=== PATIENT | male | born 2000 | race Two or more races ===

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

== ENCOUNTER 2022-11-28 05:14 | Emergency (ER) | payer OTHER, SELFPAY ==
--- NOTE | ~2022-11-28 | XR_ITS ---
EXAMINATION: XR CHEST CLINICAL INFORMATION: Dyspnea, cough COMPARISON: 12/08/2008 TECHNIQUE: Frontal view of the chest was obtained. FINDINGS: The lungs are clear with no focal consolidation. No evidence of pneumothorax, pulmonary edema, or pleural effusions. The cardiomediastinal silhouette is unremarkable. No acute osseous findings. XR/XR chest 1V IMPRESSION: No acute cardiopulmonary findings.
[2022-11-28 05:16] VITALS: BP 152/95; PULSE 116; RESP 18; TEMP 36.7; O2SAT 97; BMI 35.9
[2022-11-28 05:29] VITALS: BP 114/93; PULSE 114; RESP 30; TEMP 37.1; O2SAT 97
--- NOTE | 2022-11-28 05:29 | ECG_ITS ---
Test Reason : DYSPENA Blood Pressure : / mmHG Vent. Rate : 107 BPM Atrial Rate : 107 BPM P-R Int : 158 ms QRS Dur : 084 ms QT Int : 336 ms P-R-T Axes : 030 032 -01 degrees QTc Int : 448 ms Sinus tachycardia Nonspecific T wave abnormality Abnormal ECG No previous ECGs available Referred By: Stephanie Riley Electronically Signed By:DEBORAH WHITE MD
--- NOTE | 2022-11-28 05:35 | ED_ITS ---
HPI - SOB/Dyspnea General Chief Complaint: Dyspnea Stated Complaint: trouble breathing Time Seen by Provider: 11/28/22 05:30 Source: patient Mode of arrival: ambulatory History of Present Illness HPI Narrative: 22-year-old male who presents without significant past medical history states that he woke up this morning with some difficulty breathing, drink some water, but then has progressively worsened throughout the day. He does report sick contacts in states he has had congestion, cough, sore throat began 2-3 days ago. Related Data Previous Rx's Medication Instructions Recorded dicyclomine 10 mg capsule 10 mg PO BID Abdominal cramps 11/12/20 #14 caps prednisone 50 mg tablet 50 mg PO DAILY 4 days #4 tabs 11/28/22 Allergies Allergy/AdvReac Type Severity Reaction Status Date / Time No Known Allergies Allergy Verified 11/28/22 05:21 Review of Systems Review of Systems: Pertinent positives and negatives as stated in HPI [facility] Past Medical History Source: nursing notes reviewed Medical History No known health problems Social History Social History Alcohol intake: never Smoked in Last 30 Days: No Use of substances other than those prescribed or required for medical reasons: No Advance Directives: No Advance Directives Information Provided: Yes Physical Exam Vital Signs: Vital Signs: Last Vital Signs Temp 98.7 F 11/28/22 05:29 Pulse 112 H 11/28/22 06:47 Resp 18 11/28/22 06:47 BP 114/93 H 11/28/22 05:29 Pulse Ox 97 11/28/22 05:29 O2 Del Method Room Air 11/28/22 05:29 BMI result Body Mass Index 35.9 VITAL SIGNS: Reviewed. GENERAL: Well developed, well nourished, in no acute distress. HEAD: Normocephalic/atraumatic EYES: PERRLA, EOMI EARS: Ext canals without abnormality, TMs non-bulging and non-erythematous NOSE: Nares patent bilateral OROPHARYNX: no oral lesions noted, posterior pharynx clear and non-erythematous without noted tonsillar enlargement/erythema/exudates NECK: Supple, no adenopathy LUNGS: Normal breath sounds. No adventitious sounds or accessory muscle use. SpO2<97> CARDIOVASCULAR: Regular rate and rhythm without noted murmurs ABDOMEN: Soft, non-tender, non-distended with bowel sounds. MUSCULOSKELETAL: No tenderness, deformities, or effusions noted on gross inspection. EXTREMITIES: No cyanosis, clubbing or edema. SKIN: Inspection of the skin reveals no rashes but diaphoretic NEUROLOGIC: Alert and oriented x 4. Strength and sensation to light touch were grossly intact x 4. Medications Administered Discontinued Medications Generic Name Dose Route Start Last Admin Trade Name Rafa PRN Reason Stop Dose Admin Acetaminophen 975 mg 11/28/22 05:36 11/28/22 05:42 Acetaminophen 325 Mg Tablet PO 11/28/22 05:37 975 mg ONCE ONE Administration Albuterol Sulfate 5 mg 11/28/22 06:26 11/28/22 06:47 Albuterol Sulfate (0.083%) 2.5 Mg/3 Ml Vial.Neb INHALE 11/28/22 06:27 5 mg ONCE ONE Administration Ibuprofen 400 mg 11/28/22 05:36 11/28/22 05:42 Ibuprofen 400 Mg Tablet PO 11/28/22 05:37 400 mg ONCE ONE Administration Medical Decision Making Medical Decision Making [facility] Narrative: 22-year-old male with history and clinical presentation consistent with shortness of breath, diaphoresis and tachypnea. I reviewed all investigations, initially thought patient may have a viral syndrome, no evidence to suggest strep pharyngitis and reportedly no history of asthma. Hematologic indices are grossly within normal limits, no le ukocytosis/left shift or evidence of anemia or thrombocytopenia. Of note, there is a predominance of eosinophils consistent with suspected asthma or reactive airway etiology and so proceeded to give patient 5 mg albuterol treatment. Viral testing is negative and chest x-ray negative for pneumonia. Signed out to Dr. Hodges to follow-up chemistries, but suspect that patient will be able to be discharged with a Ventolin inhaler. Differential Diagnosis Differential Diagnoses: The differential diagnosis associated with the presentation includes Please see the discussion above Admission/Observation Consideration of admission/observation: Escalation of care including admission/observation considered Lab Data [facility] Lab Attestation statement: I reviewed the patient's lab results. Please see the discussion above 11/28/22 06:42 11/28/22 06:42 Labs: Lab Results 11/28/22 11/28/22 Range/Units 05:43 06:42 WBC 7.4 (4.8-10.8) X10*3/uL RBC 5.33 (4.60-5.80) X10*6/uL Hgb 16.8 (14.0-18.0) g/dl Hct 48.4 (42.0-52.0) % MCV 90.8 (80.0-98.0) fL MCH 31.5 (27.0-33.0) pg MCHC 34.7 (31.0-36.0) g/dl RDW 12.6 (11.0-16.0) % Plt Count 166 (160-400) X10*3/uL MPV 12.1 (9.4-12.4) fL Immature Gran % (Auto) 0.3 (0.0-0.4) % Neut % (Auto) 48.4 (45-73) % Lymph % (Auto) 27.0 (20-40) % [place] % (Auto) 18.6 H (2-11) % Eos % (Auto) 5.2 H (0-4) % Baso % (Auto) 0.5 (0-2) % Lymph # (Auto) 2.0 (1.2-4.9) X10*3/uL [place] # (Auto) 1.4 H (0.1-1.2) X10*3/uL Eos # (Auto) 0.4 (0.0-0.4) X10*3/uL Baso # (Auto) 0.0 (0.0-0.2) X10*3/uL Abs Immat Gran (auto) 0.02 (0.00-0.03) X10*3/uL Absolute Neuts (auto) 3.6 (2.0-8.3) x10*3/uL Absolute Nucleated RBC 0.000 (0.0-0.012) X10*3/uL Nucleated RBC % (auto) 0.0 (0.0-0.2) /100WBC Influenza Type A (PCR) NEGATIVE (Negative) Influenza Type B (PCR) NEGATIVE (Negative) RSV RNA Qual (PCR) NEGATIVE (Negative) SARS-CoV-2 RNA (RT-PCR) NEGATIVE (Negative) Independent Interpretation I performed an independent interpretation of an: EKG Interpretation: Sinus tachycardia, HR-107, no STEMI, nonspecific T-wave abnormalities, [place]/QRS/QTC is within normal limits. Radiology Impression Radiologist Impression: No pneumonia, otherwise my interpretation is in agreement with radiology's impression. Discharge Plan Discharge Clinical Impression: Asthma with exacerbation Patient Disposition: Still a Patient Instructions: Asthma (ED) Additional Instructions: 1. Use the albuterol inhaler, 2 puffs, every 4-6 hours as needed for shortness of breath. 2. Complete the short course of steroids. I highly recommend that you consider starting daily Flonase and Claritin for better allergen control. 3. Follow-up with your primary care provider. Return to the ER for any worsening symptoms. Prescriptions: New prednisone 50 mg tablet 50 mg PO DAILY 4 Days Qty: 4 0RF No Action dicyclomine 10 mg capsule 10 mg PO BID Qty: 14 0RF
[2022-11-28] MEDS: Acetaminophen 325 MG TABLET 975 MG PO (05:42)
[2022-11-28] MEDS: Ibuprofen 400 MG TABLET PO (05:42)
[2022-11-28 06:23] LABS: Influenza A PCR NEGATIVE (Negative); Influenza B PCR NEGATIVE (Negative); Resp Syncy Virus RNA Qual PCR NEGATIVE (Negative); SARS COV2 PCR INHOUSE NEGATIVE (Negative)
[2022-11-28 06:47] VITALS: PULSE 112; RESP 18; O2SAT 97
[2022-11-28] MEDS: Albuterol Sulfate (0.083%) 2.5 MG/3 ML VIAL.NEB 5 MG INHALE (06:47)
[2022-11-28 06:50] LABS: MANUAL DIFF FLAG NO
[2022-11-28 06:51] LABS: Basophils Percent Auto 0.5 % (0-2); Eosinophils Absolute Auto 0.4 X10*3/uL (0.0-0.4); Eosinophils Percent Auto 5.2 % (0-4); Hematocrit 48.4 % (42.0-52.0); Hemoglobin 16.8 g/dl (14.0-18.0); Imm Gran Abs Auto 0.02 X10*3/uL (0.00-0.03); Imm Gran Pct Auto 0.3 % (0.0-0.4); Mean Corpuscular HGB Conc 34.7 g/dl (31.0-36.0); Mean Corpuscular Hemoglobin 31.5 pg (27.0-33.0); Mean Corpuscular Volume 90.8 fL (80.0-98.0); Mean Platelet Volume 12.1 fL (9.4-12.4); Monocytes Absolute Auto 1.4 X10*3/uL (0.1-1.2); Monocytes Percent Auto 18.6 % (2-11); Neutrophils Absolute Auto 3.6 x10*3/uL (2.0-8.3); Neutrophils Percent Auto 48.4 % (45-73); Platelet Count 166 X10*3/uL (160-400); Red Blood Count 5.33 X10*6/uL (4.60-5.80); Red Cell Distribution Width 12.6 % (11.0-16.0); White Blood Count 7.4 X10*3/uL (4.8-10.8)
[2022-11-28 07:12] VITALS: BP 151/86; PULSE 115; RESP 16; TEMP 36.9; O2SAT 96
[2022-11-28] MEDS: predniSONE 10 MG TABLET 50 MG PO (07:21)
[2022-11-28 07:23] LABS: Alanine Aminotransferase 29 U/L (0-40); Albumin Level 4.3 g/dL (3.5-5.0); Alkaline Phosphatase 91 U/L (39-117); Anion Gap 14 (12-20); Aspartate Amino Transferase 25 U/L (5-37); Bilirubin Total 1.4 mg/dL (0.0-1.0); Blood Urea Nitrogen 19 mg/dL (9-16); Carbon Dioxide 24 mmol/L (22-29); Chloride 106 mmol/L (96-108); Estimated Glomerular Filt Rate > 60; Glucose Random 102 mg/dL (60-115); Potassium 3.9 mmol/L (3.3-5.1); Sodium 140 mmol/L (135-145); Total Protein 7.3 g/dL (6.5-8.0)
[2022-11-28] MEDS: Albuterol Sulfate 90 MCG 8 GM INHALER 2 PUFF INHALE (07:23)
--- NOTE | 2022-11-28 07:25 | PC.NURSE ---
pt a&ox3, respiration equal and unlabored. lung sounds clear bilaterally. skin moist and warm to touch. pt sinus tachy on tele. pt reporting itching and pain in throat,throat appears slightly red and swollen.
[2022-11-28 07:35] VITALS: PULSE 116; RESP 18; O2SAT 94
[2022-11-28 07:49] LABS: IDNOW Serial# 08D9AD1C; Strep A Nucleic Acid Negative (Negative)
== END 2022-11-28 08:56 | disposition home or self-care (01) ==
PROVIDERS: Student in an Organized Health Care Education/Training Program; Emergency Provider Emergency Medicine Emergency Medical Services
DX: R06.02 Shortness of breath (principal); R00.0 Tachycardia, unspecified; R05.9 Cough, unspecified; Z20.822 Contact with and (suspected) exposure to COVID-19; Z20.828 Contact with and (suspected) exposure to other viral communicable diseases; Z79.899 Other long term (current) drug therapy
CPT/HCPCS: 0241U; 36415; 71045; 80053; 85025; 87651; 93005; 94640; 99284; 99285

== ENCOUNTER → 2022-11-28 05:29 | Outpatient (BNV) | payer OTHER, SELFPAY | PROVIDERS: Emergency Provider Emergency Medicine Emergency Medical Services; Visit Provider Internal Medicine Cardiovascular Disease | DX: R00.0 Tachycardia, unspecified (principal) | CPT/HCPCS: 93010 ==

== ENCOUNTER 2023-08-07 13:29 | Emergency (ER) | payer OTHER, SELFPAY ==
[2023-08-07 13:57] VITALS: BP 143/90; PULSE 100; RESP 16; TEMP 37.2; O2SAT 99; BMI 35.2
--- NOTE | 2023-08-07 14:02 | ED.GENADULT ---
HPI - General Adult General Chief complaint: Skin/Abscess/Foreign Body Stated complaint: cyst under l arm Time Seen by Provider: 08/07/23 15:43 Source: patient Mode of arrival: ambulatory Limitations: no limitations History of Present Illness HPI narrative: 22 yo Male presenting to the ER for evaluation of a painful cyst under his left arm for the last 4 days. He states he has been getting larger and more painful over time. He states he just started shaving his under arms recently. He states there is pain with any movement of the left lower extremity. Denies any fever or chills. He has not diabetic. No drainage from the area. complaint: Painful cyst under left underarm Onset (ago): day(s) Location: left and upper extremity Radiation: non-radiation Severity: severe Severity scale (1-10): 10 Quality: stabbing and aching Pain Consistency: constant Relieving factors: immobilization Exacerbating factors: movement Associated symptoms: denies other symptoms Treatments prior to arrival: none Related Data Previous Rx's Medication Instructions Recorded dicyclomine 10 mg capsule 10 mg PO BID Abdominal cramps 11/12/20 #14 caps prednisone 50 mg tablet 50 mg PO DAILY 4 days #4 tabs 11/28/22 amoxicillin 875 mg-potassium 1 tab PO BID #14 tabs 08/07/23 clavulanate 125 mg tablet ibuprofen 600 mg tablet 600 mg PO Q8H PRN pain #14 tabs 08/07/23 Allergies Allergy/AdvReac Type Severity Reaction Status Date / Time No Known Allergies Allergy Verified 11/28/22 05:21 Review of Systems Review of Systems: Yes all other systems are reviewed and are negative PMFSH Past Medical History Medical History No known health problems Social History Social History Alcohol intake: never Advance Directives: No Advance Directives Information Provided: No Physical Exam ED Vital Signs: Vital Signs - 24 hr 08/07/23 13:57 Temperature 99 F Pulse Rate 100 Respiratory Rate 16 Blood Pressure 143/90 H Pulse Oximetry 99 Oxygen Delivery Method Room Air BMI result Body Mass Index 35.2 Appearance: Alert. Oriented X3. No acute distress. HEENT: normal inspection CVS: Normal heart rate and rhythm. Pulses normal. Respiratory: No respiratory distress. Skin: Skin warm and dry. Normal skin color. Normal skin turgor. No rashes. Extremities: left axillary area with moderate sized tender area approx 3.5cm with central fluctuance Neuro: Oriented X 3. No motor deficit. No sensory deficit. Course Course Course Narrative: This is an RME: Additional HPI, ROS, PE not included below will be deferred to primary provider.22 yo m presents w/ cyst under left armpit X 4 days worsening. Never has happened to him before. No fevers or chills Medications Administered Discontinued Medications Generic Name Dose Route Start Last Admin Trade Name Freq PRN Reason Stop Dose Admin Lidocaine HCl 5 ml 08/07/23 14:02 08/07/23 15:59 Lidocaine Hcl 2 % Mpf 5 Ml Vial SUBCUT 08/07/23 14:03 Not Given ONCE ONE Procedures Abscess I/D Site: upper extremity Side (if applicable): left Local Anesthetic: lidocaine 1% Amount of anesthesia used (mL): 1 Technique: incised with blade Sent for culture/gram staining?: No Irrigation: Yes Packing used?: none Complications: pain and bleeding Medical Decision Making Medical Decision Making MDM Narrative: 22-year-old male presents to the ER for evaluation of painful left axillary mass c/w abscess x4 days. No hx DM. area was incised and drained in the ER with moderate amount of purulent and bloody material. Size significantly decreased. Patient tolerated well. Had some mild cellulitic changes surrounding so will give short course of antibiotics as well. Patient is stable for discharge home. We discussed wound care and return precautions. Patient is in agreement and all questions were answered Differential Diagnosis Differential Diagnoses: The differential diagnosis associated with the presentation includes abscess, cyst, hidradenitis suppurativa, infected follicle, carbuncle External Record Review External record reviewed: Outpatient record and Prior outpatient labs Prescription Management I considered prescription management with: Pain Medication and Antibiotic Chronic Conditions Patient?s care impacted by: Other (obesity) Critical Care Time Critical Care Time Critical Care Time: No Discharge Plan Discharge Clinical Impression: Abscess of skin or subcutaneous tissue Qualifiers: Site of cutaneous abscess: extremity Site of cutaneous abscess of extremity: axilla Laterality: left Qualified Code(s): L02.412 - Cutaneous abscess of left axilla Patient Disposition: Home, Self-Care Instructions: Abscess Incision and Drainage (DC) Additional Instructions: Use warm compresses to the area several times per day. Do not shave your underarms. Take the prescribed antibiotic as directed. Take Motrin and Tylenol as needed for pain. If you develop new or worsening symptoms call 911 or come back to the ER for further evaluation. Prescriptions: New amoxicillin-pot clavulanate 875-125 mg tablet 1 tab PO BID Qty: 14 0RF ibuprofen 600 mg tablet 600 mg PO Q8H PRN (Reason: pain) Qty: 14 0RF No Action dicyclomine 10 mg capsule 10 mg PO BID Qty: 14 0RF prednisone 50 mg tablet 50 mg PO DAILY 4 Days Qty: 4 0RF Stand Alone Forms: Work/School Release
--- NOTE | 2023-08-07 15:58 | PC.NURSE ---
pt a&ox3, provider at bedside, pt c/o under arm pain
[2023-08-07 16:18] VITALS: BP 148/86; PULSE 98; RESP 16; TEMP 37.1; O2SAT 98
== END 2023-08-07 16:19 | disposition home or self-care (01) ==
PROVIDERS: Emergency Provider Emergency Medicine
DX: L02.412 Cutaneous abscess of left axilla (principal)
CPT/HCPCS: 10060; 99282; 99283; 99284

== ENCOUNTER 2024-03-02 15:43 | Emergency (ER) | payer OTHER, SELFPAY ==
[2024-03-02 16:21] VITALS: BP 141/90; PULSE 102; RESP 18; TEMP 36.4; O2SAT 98; BMI 17.3
--- NOTE | 2024-03-02 16:24 | ED.GENADULT ---
HPI - General Adult General Chief complaint: Skin/Abscess/Foreign Body Stated complaint: Ingrown toe nail Time Seen by Provider: 03/02/24 16:24 Source: patient and RN notes reviewed Mode of arrival: ambulatory Limitations: no limitations History of Present Illness ED Provider: Samaria Tristan PA-C HPI narrative: This is a 23-year-old male, with no known medical problems, who presents emergency department with complaints of right great toenail pain for the last few weeks. Patient states that he believes he has an ingrown toenail and started trying to remove this area. He states that the area has been increasingly painful and has noticed some drainage. He denies any fevers or chills. No history of diabetes, he is up-to-date with all his immunizations. No history of similar symptoms in the past. 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 No other complaints or concerns at this time. MD complaint: Right great toe pain Onset (ago): week(s) Quality: aching Pain Consistency: constant Relieving factors: none Associated symptoms: denies other symptoms Treatments prior to arrival: none Related Data Previous Rx's ?Medication ?Instructions ?Recorded dicyclomine 10 mg capsule 10 mg PO BID Abdominal cramps 11/12/20 #14 caps prednisone 50 mg tablet 50 mg PO DAILY 4 days #4 tabs 11/28/22 amoxicillin 875 mg-potassium 1 tab PO BID #14 tabs 08/07/23 clavulanate 125 mg tablet ibuprofen 600 mg tablet 600 mg PO Q8H PRN pain #14 tabs 08/07/23 acetaminophen 500 mg tablet 1,000 mg (2 x 500 mg) PO Q8H PRN 03/02/24 (Tylenol Extra Strength) pain #30 tabs cephalexin 500 mg capsule 500 mg PO QID 5 days #20 caps 03/02/24 ibuprofen 600 mg tablet 600 mg PO Q6H PRN pain #30 tabs 03/02/24 Allergies Allergy/AdvReac Type Severity Reaction Status Date / Time No Known Allergies Allergy Verified 03/02/24 16:22 Review of Systems Review of Systems: Yes all other systems are reviewed and are negative Constitutional: Constitutional: Reports as per [facility] Past Medical History Attestation statement: The following information was validated with the patient. Medical History No known health problems Social History Social History Alcohol intake: never Advance Directives: No Advance Directives Information Provided: Yes Physical Exam ED Vital Signs: Vital Signs - 24 hr 03/02/24 16:21 Temperature 97.5 F Pulse Rate 102 H Respiratory Rate 18 Blood Pressure 141/90 H Pulse Oximetry 98 Oxygen Delivery Method Room Air BMI result Body Mass Index 17.3 Const General: cooperative, comfortable and no acute distress Orientation/consciousness: patient oriented x3 Limitations: no limitations HENMT Head: Yes normal to inspection, Yes normocephalic and Yes atraumatic Ears: hearing grossly normal bilaterally General nose exam: Normal external nose present Face and sinus: Yes normal facial exam Mouth: Normal oral and palatal mucosa present, oropharynx normal and moist mucous membranes Throat: Yes posterior oropharynx normal Eyes General: appearance normal, both eyes and all related structures Eyelids: Yes eyelids normal Conjunctivae: conjunctivae normal Sclerae: sclerae normal Pupils: Equal, round and reactive pupils present EOM: EOMs intact bilaterally Neck Neck: Yes normal visual inspection, Yes full ROM and Yes no lymphadenopathy Lymphatic: no lymphadenopathy noted Chest Chest palpation & inspection: normal inspection of the chest Resp Effort & Inspection: normal respiratory effort and able to speak in complete sentences Auscultation: clear to auscultation bilaterally, no crackles, no rales, no rhonchi and no wheezes Cardio Rate: regular rate Rhythm: regular rhythm Heart sounds: S1 normal heart sound present and S2 normal heart sound present GI Inspection: Yes normal to inspection Skin General skin exam: no rashes or lesions noted Trauma: no lacerations or abrasions Wounds: no wounds Neuro General: patient oriented x3 and moves all extremities Cranial nerves: Yes Equal, round and reactive pupils present Extrem Other: Right great toe, with tenderness and erythema and induration noted to the lateral nail edge, with some drainage noted. Full ROM of the digit without difficulty. No evidence of abscess or paronychia. General: Yes normal to inspection Right upper extremity: normal to inspection Left upper extremity: normal to inspection Right lower extremity: normal to inspection Left lower extremity: normal to inspection Medical Decision Making Medical Decision Making MDM Narrative: This is a 23-year-old male who presents emergency department with complaints of right great toe redness and pain for the last several weeks. Area is erythematous, warm, and tender to palpation. On arrival, patient slightly hypertensive at 141/90, pulse 102, likely secondary to pain. He has no fevers or chills. Patient's symptoms consistent with ingrown toenail, will treat with Keflex. He has no other symptoms other than pain. Tachycardia secondary to pain, he is afebrile. Will treat with Keflex, given strict return precautions as well as podiatry referral. Patient stable for discharge. Differential Diagnosis Differential Diagnoses: The differential diagnosis associated with the presentation includes Cellulitis, ingrown toenail, paronychia, abscess Discharge Plan Discharge Clinical Impression: Ingrowing toenail of right foot Patient Disposition: Home, Self-Care Instructions: Ingrown Nail (ED), Warm Compress or Soak (ED) Additional Instructions: You were seen in the emergency department due to an infected toenail. Please do not pick at this area. You need to be on antibiotics as this is now infected. Take full course of antibiotics as directed. Finish the entire course even if your symptoms improve. Please perform warm soaks, 6 times per day. May use hot soapy water to do this. Soap this for 15 minutes at a time, and repeat 6 times per day. You need to follow-up with the salesperson pian[employer] organs, call today to make an appointment. If any new or worsening symptoms occur including but not limited to increased pain, redness, fevers or chills. Prescriptions: New cephalexin 500 mg capsule 500 mg PO QID 5 Days Qty: 20 0RF ibuprofen 600 mg tablet 600 mg PO Q6H PRN (Reason: pain) Qty: 30 0RF acetaminophen [Tylenol Extra Strength] 500 mg tablet 1,000 mg PO Q8H PRN (Reason: pain) Qty: 30 0RF No Action dicyclomine 10 mg capsule 10 mg PO BID Qty: 14 0RF prednisone 50 mg tablet 50 mg PO DAILY 4 Days Qty: 4 0RF amoxicillin-pot clavulanate 875-125 mg tablet 1 tab PO BID Qty: 14 0RF ibuprofen 600 mg tablet 600 mg PO Q8H PRN (Reason: pain) Qty: 14 0RF Referrals: Heidi Huber DPM [Physician] - Stand Alone Forms: Work/School Release Print Language: Hungarian
[2024-03-02 17:40] VITALS: BP 141/90; PULSE 102; RESP 18; TEMP 36.4; O2SAT 98
== END 2024-03-02 17:42 | disposition home or self-care (01) ==
PROVIDERS: Emergency Provider Emergency Medicine; PCP Physician Assistant Medical
DX: L60.0 Ingrowing nail (principal); R00.0 Tachycardia, unspecified; M79.674 Pain in right toe(s)
CPT/HCPCS: 99282; 99283

== ENCOUNTER 2024-03-25 13:42 | Outpatient (AMB) | payer OTHER, SELFPAY ==
--- NOTE | 2024-03-25 13:45 | MHC.PC.OV ---
Vital Signs 03/25/24 13:55 Height 5 ft 8 in Weight 249 lb BMI 37.9 BP 128/80 Blood Pressure Location Lt brachial Position Sitting Respiration 13 Pulse 93 Pulse Source Pulse Oximeter Pulse Oximetry (%) 98 Oxygen Delivery Method Room Air Intake Visit Reasons: [employer]PER[employer]OR- PE request Intake Note: ew patient to establish care Corporate Ethics Officer Required: No Allergies No Known Allergies Allergy (Verified 03/25/24 13:48) Tobacco use date assessed: 03/25/24 Dental Screening Dental Screen Date: 03/25/24 Did you have a dental visit in the last 12 months?: No Did you have a dental problem in the last 6 months where you did not have access to dental care?: No Was dental information given to patient?: Patient has dentist HPI HPI Comments History of Present Illness Details This is a 23-year-old male presenting for a physical exam. He is a new patient. Patient was seen at the emergency department on 03/02/2024 for an infection of his right ingrown great toenail. Patient was treated with cephalexin. Symptoms improved, but the ingrown nail is still painful. He also has an ingrown toenail on the left foot. He will schedule a dental and eye exams. He works as a cook at [employer]. Drinks alcohol socially. Nonsmoker. No drug use. Declines screenings for STIs. Influenza and Tdap vaccines administered today. ROS: Constitutional: No unexplained weight loss, fever, chills, fatigue or night sweats. Eyes: No vision changes, blurry vision, double vision, eye pain, eye redness, eye discharge. ENT: No hearing loss, sneezing, congestion, runny nose or sore throat. Respiratory: No shortness of breath, cough or sputum production. Cardiovascular: No chest pain, chest pressure or chest discomfort. No palpitations or pedal edema. Gastrointestinal: No anorexia, nausea, vomiting or diarrhea. No abdominal pain or blood in stool. Genitourinary: No dysuria, hematuria, urinary frequency. No testicular masses, pain, swelling or hernia. Neurologic: No headache, dizziness, syncope, unilateral weakness, ataxia, numbness or tingling in the extremities. Musculoskeletal: No muscle pain, back pain, joint pain or swelling. Hematologic/Lymphatics: No bleeding or bruising. No painful lymph nodes. Skin: No rash. Endocrine: No cold or heat intolerance. No polyuria or polydipsia. Psychiatric: No depression or anxiety. No SI/HI. Physical exam: Constitutional: Alert, in no distress. Head: Normocephalic. Eyes: Pupils are equal, round and reactive to light. Extraocular muscles intact. Ear, Nose and Throat: Canals clear. TMs normal. Normal nasal mucosa. No nasal discharge. No oral lesions. Neck: Supple, Full range of motion. No lymphadenopathy. No palpable thyroid masses. Respiratory: Clear to auscultation. Cardiovascular: S1 S2 regular. No murmurs. Gastrointestinal: Abdomen soft, non-tender, non-distended. Normal bowel sounds. No palpable masses. Genitourinary: Patient deferred. Neurologic: No focal neurological deficits. Symmetric patellar reflexes. Moves all extremities spontaneously. Sensation intact bilaterally. Skin: No rashes. Musculoskeletal: No gross deformities. Normal range of motion. Extremities: Warm and well perfused. Toenails: Bilateral ingrown great toenails. There is dried blood on the edges of the right great toenail and mild swelling. No weeping or discharge. No erythema. Psychiatric: Normal mood and affect [facility] Medical History (Updated 03/25/24 @ 14:27 by ELDA Yin) Ingrown toenail of both feet Screening for cardiovascular condition Routine physical examination Asthma Surgical History (Updated 03/25/24 @ 13:54 by Abraham Pham MA) No pertinent past surgical history Family History (Updated 03/25/24 @ 13:54 by Abraham Pham MA) Paternal Grandfather Diabetes Maternal Grandfather Diabetes Colon cancer Father Hypertension Maternal Grandmother Cardiovascular disease Asthma Sister Thyroid disease Asthma Brother Asthma Mother Asthma Social History (Updated 03/25/24 @ 13:50 by Abraham Pham MA) Household Members: Family Both parents involved: Yes Caregiver staying overnight: No Housing: House Are you a primary day care aide to a significant other at home: No 75 years or older and lives alone: No Alcohol intake: never Patient Tobacco Use Status: Never used Tobacco e-Cigarette/Vaping Use: Never Used Second Hand Smoke Exposure: No Use of substances other than those prescribed or required for medical reasons: No service: No Current occupational status: employed Current occupation: cook Cognitive needs: No Hearing needs: No Vision needs: No Questionnaire PHQ-9 Over the last 2 weeks, how often have you been bothered by any of the following problems? 1. Little interest or pleasure in doing things: not at all 2. Feeling down, depressed, or hopeless: not at all 3. Trouble falling or staying asleep, or sleeping too much: not at all 4. Feeling tired or having little energy: not at all 5. Poor appetite or overeating: not at all 6. Feeling bad about yourself - or that you are a failure or have let yourself or your family down: not at all 7. Trouble concentrating on things, such as reading the newspaper or watching television: not at all 8. Moving or speaking so slowly that other people could have noticed. Or the opposite - being so fidgety or restless that you have been moving around a lot more than usual: not at all 9. Thoughts that you would be better off or of hurting yourself in some way: not at all Total score: 0 08990 - PHQ-9 Billing: Yes Source: Developed by Drs. Christopher Fragoso, Marilou Marie, Joseluis Vasquez and colleagues, with an educational efrain from [employer]. Thrive Questionnaire Date Thrive assessed: 03/25/24 I am a: Patient What is your living situation today?: I have a steady place to live Within the past 12 months, did the food you bought not last and you didn't have the money to get more?: Never true Within the past 12 months, did you worry whether your food would run out before you got money to buy more?: Never true Do you have trouble paying for medicines?: No Do you have trouble getting transportation to medical appointments?: No Do you have trouble paying your heating and electricity bill?: No Do you have trouble taking care of your child, family member or friend?: No Do you have trouble with day-to-day activities such as bathing, preparing meals, shopping, managing finances, etc.?: No Are you currently unemployed and looking for a job?: No Are you interested in more education?: No Please select the resources that you would like help with: None Currently or been in a relationship where the following occur: No concerns reported THRIVE Score: 0 AUDIT C Alcohol Use Questionnaire (AUDIT-C) 1. How often do you have a drink containing alcohol?: Never Total Score: 0 GEOFF-7 AMB Questionnaire GEOFF-7 Date GEOFF - 7 assessed: 03/25/24 Feeling nervous, anxious, or on edge: 0 = Not at all Not being able to stop or control worryin = Not at all Worrying too much about different things: 0 = Not at all Trouble relaxin = Not at all Being so restless that it is hard to sit still: 0 = Not at all Becoming easily annoyed or irritable: 0 = Not at all Feeling afraid as if something awful might happen: 0 = Not at all Total GEOFF-7 score (0-4 normal; 5-9 mild; 10-14 moderate; 15-21 severe): 0 Source: Developed by Drs. Christopher Fragoso, Marilou Marie, Joseluis Vasquez and colleagues, with an educational efrain from [employer]. GEOFF-7 Assessment Billing GEOFF-7 Assessment Tool: GEOFF-7 Assessment 14438 Physical exam (Primary Care) Vital Signs: Last Vital Signs Pulse 93 03/25/24 13:55 Resp 13 03/25/24 13:55 BP 128/80 03/25/24 13:55 Pulse Ox 98 03/25/24 13:55 Oxygen Delivery Method Room Air 03/25/24 13:55 BMI result Body Mass Index 37.9 Tobacco/Smoking Status: Tobacco use Status Tobacco use date assessed 03/25/24 03/25/24 13:57 Patient Tobacco Use Status Never used Tobacco 03/25/24 13:57 e-Cigarette/Vaping Use Never Used 03/25/24 13:57 PHQ-9: PHQ-9 Score PHQ-9: Total score 0 03/25/24 13:47 Thrive Assessment: Date of Thrive Assessment Date Thrive assessed 03/25/24 03/25/24 13:47 Currently or been in a relationship where the following occur: No concerns reported Coding Level of Care Code New Pt Prev Care 18-39yr(79842 Diagnoses Routine physical examination Z00.00 Ingrown toenail of both feet L60.0 Additional Codes GEOFF-7 Assessment Billing - GEOFF-7 Assessment Tool: GEOFF-7 Assessment 50897 ([id number]) PHQ-9 - 10849 - PHQ-9 Billing: Yes ([id number]) Assessment & Plan Assessment & Plan (1) Routine physical examination: Code(s): Z00.00 - Encounter for general adult medical examination without abnormal findings Category: Medical Plan: Patient is seen today for a routine physical. As part of this visit we reviewed the following issues, which are considered and essential part of preventative health in this age group: - Testicular cancer screening, which includes self exam teaching - Blood pressure screening - Cholesterol screening - Nutritional and exercise counseling - Counseling of injury prevention including fire prevention, smoke alarms and seat belt usage - Screening for depression - Prevention of and/or testing for infectious diseases- declined. - Education about skin cancer - Recommendations about immunizations - Recommendation of an eye exam - Screening for substance abuse - Genetic cancer risk screening (2) Ingrown toenail of both feet: Code(s): L60.0 - Ingrowing nail Category: Medical Plan: Continue warm soaks and application of topical bacitracin ointment. Referred to Dr. Auguste. Plan Follow up in 1 year for annual physical exam and sooner as needed. Orders: Orders Complete Blood Count no Diff Today Z00.00 - Encounter for general adult medical examination without abnormal findings, Z13.6 - Encounter for screening for cardiovascular disorders TSH reflex Free T4 Today Z00.00 - Encounter for general adult medical examination without abnormal findings, Z13.6 - Encounter for screening for cardiovascular disorders Comprehensive Met. Panel Today Z00.00 - Encounter for general adult medical examination without abnormal findings, Z13.6 - Encounter for screening for cardiovascular disorders TDaP Immunization Today Z23 - Encounter for immunization Influenza [id number] Immunization Today Z23 - Encounter for immunization Lipid Panel Today Z00.00 - Encounter for general adult medical examination without abnormal findings, Z13.6 - Encounter for screening for cardiovascular disorders Referrals Podiatry Referral L60.0 - Ingrowing nail Medications: New Boostrix Tdap (diphth,pertus(acell),tetanus) 0.5 mL IM ONCE 0.5 mL 0RF NS Z23 - Encounter for immunization Fluarix Triv [id number] (PF) (flu vacc [id number] 6mos up(PF)) 0.5 mL IM ONCE 0.5 mL 0RF NS Z23 - Encounter for immunization
[2024-03-25 13:55] VITALS: BP 128/80; PULSE 93; RESP 13; O2SAT 98; BMI 37.9
== END 2024-03-25 14:42 | disposition home or self-care (01) ==
LOC: HO.HMCFM 13:43
PROVIDERS: PCP Physician Assistant Medical; Visit Provider Physician Assistant Medical
DX: Z00.00 Encounter for general adult medical examination without abnormal findings (principal); L60.0 Ingrowing nail; Z23 Encounter for immunization

== ENCOUNTER → 2024-03-25 13:42 | Outpatient (BNVA) | payer OTHER, SELFPAY | PROVIDERS: PCP Physician Assistant Medical; Visit Provider Physician Assistant Medical | DX: Z00.00 Encounter for general adult medical examination without abnormal findings (principal); L60.0 Ingrowing nail; Z23 Encounter for immunization | CPT/HCPCS: 90471; 90472; 90656; 90715; 96127; 99385 ==

== ENCOUNTER 2025-05-13 14:27 | Emergency (ER) | payer OTHER, SELFPAY ==
--- NOTE | ~2025-05-13 | XR_ITS ---
EXAMINATION: XR CHEST CLINICAL INFORMATION: cp COMPARISON: Chest 11/28/2022 TECHNIQUE: 2 views of the chest were obtained. FINDINGS: No significant abnormality is noted involving the heart, lungs, mediastinum, bony thorax or soft tissues. XR/XR chest 2V IMPRESSION: Unremarkable chest examination. Electronically signed by: Rico Barrett MD 05/13/2025 03:14 PM [facility]
--- NOTE | 2025-05-13 14:29 | ECG_ITS ---
Test Reason : CP Blood Pressure : */* mmHG Vent. Rate : 138 BPM Atrial Rate : 138 BPM P-R Int : 154 ms QRS Dur : 76 ms QT Int : 262 ms P-R-T Axes : 43 27 -35 degrees QTcB Int : 396 ms Sinus tachycardia T wave abnormality, consider inferior ischemia Abnormal ECG When compared with ECG of 28-Nov-2022 05:30, No significant change was found Referred By: Vilma Coleman Electronically Signed By: DEBORAH HWITE MD
[2025-05-13 14:42] VITALS: BP 162/67; PULSE 132; RESP 20; TEMP 38.7; O2SAT 94; BMI 40.8
--- NOTE | 2025-05-13 14:43 | ED_ITS ---
HPI - URI/Sore Throat General Chief Complaint: Chest Pain Stated Complaint: Chest Pain, Hard Time Breathing, Possible Fever Time Seen by Provider: 05/13/25 19:59 History of Present Illness ED Provider: Brittney DALTON Narrative: The patient is an ordinarily healthy 24-year-old who has felt unwell since this morning. Here in the emergency room he had a temperature of 101.4 degrees. He was tachycardic and hypertensive at triage. He was given a dose of ibuprofen. It at the time that I saw him his blood pressure had normalized. His heart rate had come down to 103. His temperature was normal. He was feeling considerably better. The patient says that he had some chest pain, some cough, some runny nose, and some chills. No vomiting. No leg swelling or pain apart from generalized body pains. Related Data Previous Rx's ?Medication ?Instructions ?Recorded acetaminophen 500 mg capsule 1,000 mg (2 x 500 mg) PO Q8H PRN 05/13/25 fever or pain #14 caps ibuprofen 400 mg tablet 400 mg PO Q6H PRN pain #14 t abs 05/13/25 Allergies Allergy/AdvReac Type Severity Reaction Status Date / Time No Known Allergies Allergy Verified 05/13/25 14:46 Review of Systems 2 Review of Systems: Yes all other systems are reviewed and are negative [facility] [place] Past Medical History Medical History (Updated 05/14/25 @ 00:00 by Juanito Vann) Ingrown toenail of both feet Screening for cardiovascular condition Routine physical examination Asthma Surgical History (Updated 03/25/24 @ 13:54 by Abraham Pham MA) No pertinent past surgical history Family History Family History (Updated 03/25/24 @ 13:54 by Abraham Pham MA) Paternal Grandfather Diabetes Maternal Grandfather Diabetes Colon cancer Father Hypertension Maternal Grandmother Cardiovascular disease Asthma Sister Thyroid disease Asthma Brother Asthma Mother Asthma Social History Social History (Updated 03/25/24 @ 13:50 by Abraham Pham MA) Household Members: Family Housing: House Are you a primary emergency care attendant to a significant other at home: No Alcohol intake: never Patient Tobacco Use Status: Never used Tobacco e-Cigarette/Vaping Use: Never Used Second Hand Smoke Exposure: No Advance Directives: No Advance Directives Information Provided: No Do you have a plan to hurt others: No Plan service: No Current occupational status: employed Current occupation: [employer] Cognitive needs: No Hearing needs: No Vision needs: No Physical Exam 2 Vital Signs: Vital Signs: Last Vital Signs Temp 98.3 F 05/13/25 20:39 Pulse 103 H 05/13/25 20:39 Resp 17 05/13/25 20:39 BP 120/87 05/13/25 20:39 Pulse Ox 96 05/13/25 20:39 O2 Del Method Room Air 05/13/25 20:39 BMI result Body Mass Index 40.8 Const: Other: At the time that I saw the patient he was feeling much better. He was awake, alert, pleasant, cooperative. He is a robust looking 24-year-old. He did not seem in any distress. Orientation/consciousness: patient oriented x3 HEENT: Other: The face is symmetrical. Mucous membranes moist. Posterior pharynx is unremarkable. Eyes: Other: Pupils are round equal, conjunctivae are clear, extraocular movements intact Neck: Neck: Yes normal visual inspection, Yes full ROM, Yes no lymphadenopathy and Yes no meningeal signs Resp: Effort & Inspection: normal respiratory effort Auscultation: clear to auscultation bilaterally Cardio: Rate: tachycardic Rhythm: regular rhythm Heart sounds: S1 normal heart sound present and S2 normal heart sound present GI: Other: Abdomen is soft and nontender Skin: Other: The skin is dry and unremarkable General skin exam: no rashes or lesions noted Neuro: General: patient oriented x3, gait normal, tone normal, moves all extremities, no meningeal signs, no focal motor deficits and CN's II-XI intact bilaterally Extrem: Other: There is no calf swelling or tenderness. No asymmetry. No peripheral edema. Course Course Course Narrative: This is a Rapid Medical Exam performed in triage by Vilma Coleman PA-C. Full HPI, ROS and PE to be performed by primary ED provider. 24 yo M presenting to the ED c/o chest pain with breathing, chills, fatigue, congestion, PE: febrile, tachycardic, lungs w/diminished lung sounds - no wheezing Plan: SARs, CXR, rapid strep, labs Medications Administered Discontinued Medications Generic Name Dose Route Start Last Admin Trade Name Freq PRN Reason Stop Dose Admin Acetaminophen 975 mg 05/13/25 20:11 12/26/25 20:36 Acetaminophen 325 Mg Tablet PO 12/26/25 20:12 975 mg ONCE ONE Administration Ibuprofen 600 mg 05/13/25 14:45 05/13/25 14:49 Ibuprofen 600 Mg Tablet PO 05/13/25 14:46 600 mg ONCE ONE Administration Medical Decision Making Medical Decision Making [facility] Narrative: The patient is a 24-year-old male who is generally in good health. He presents with symptoms that began this morning. Symptoms include chills, body aches, and chest pain. He had a fever at triage with a temperature of 101.4 degrees. Clinically at the time that I saw the patient he was feeling much better after having received a dose of ibuprofen. Testing ordered at triage showed a CBC that had a white count of 8.2, hemoglobin 17.3, platelet count 169. He had 73.3% neutrophils, 13.8% lymphocytes, 9.7% monocytes. He had an unremarkable Basic metabolic panel and LFTs. Troponin undetectable. Chest x-ray showed no Significant findings Serology is negative for strep throat, COVID, the flu, and RSV. The patient presented with significantly abnormal vital signs at triage but by the time I saw him he had received a dose of ibuprofen and was feeling much better with much improved vital signs. I suspect this otherwise healthy 24-year-old has some kind of a viral illness other than RSV, flu, and COVID. I think he may be discharged with viral respiratory instructions. Ibuprofen and acetaminophen as needed for discomfort and fever. He should return if you feel significantly worse. Otherwise he should follow up with his PCP. Lab Data 05/13/25 15:30 05/13/25 15:30 Labs: Lab Results 05/13/25 Range/Units 15:30 WBC 8.2 (4.8-10.8) X10*3/uL RBC 5.50 (4.60-5.80) X10*6/uL Hgb 17.3 (14.0-18.0) g/dl Hct 48.9 (42.0-52.0) % MCV 88.9 (80.0-98.0) fL MCH 31.5 (27.0-33.0) pg MCHC 35.4 (31.0-36.0) g/dl RDW 12.6 (11.0-16.0) % Plt Count 169 (160-400) X10*3/uL MPV 12.4 (9.4-12.4) fL Immature Gran % (Auto) 0.4 (0.0-0.4) % Neut % (Auto) 73.3 H (45-73) % Lymph % (Auto) 13.8 L (20-40) % [place] % (Auto) 9.7 (2-11) % Eos % (Auto) 2.3 (0-4) % Baso % (Auto) 0.5 (0-2) % Lymph # (Auto) 1.1 L (1.2-4.9) X10*3/uL [place] # (Auto) 0.8 (0.1-1.2) X10*3/uL Eos # (Auto) 0.2 (0.0-0.4) X10*3/uL Baso # (Auto) 0.0 (0.0-0.2) X10*3/uL Abs Immat Gran (auto) 0.03 (0.00-0.03) X10*3/uL Absolute Neuts (auto) 6.0 (2.0-8.3) x10*3/uL Absolute Nucleated RBC 0.000 (0.0-0.012) X10*3/uL Nucleated RBC % (auto) 0.0 (0.0-0.2) /100WBC PT 11.5 (11.2-13.5) SEC INR 0.9 (0.9-1.1) Sodium 138 (135-145) mmol/L Potassium 4.2 (3.3-5.1) mmol/L Chloride 106 (96-108) mmol/L Carbon Dioxide 23 (22-29) mmol/L Anion Gap 13 (12-20) BUN 13 (9-16) mg/dL Creatinine 1.09 (0.5-1.4) mg/dL Estim Creat Clear Calc 130.7 Estimated GFR > 60 Random Glucose 107 (60-115) mg/dL Calcium 9.3 D (8.4-10.2) mg/dL Magnesium 1.8 (1.6-2.6) mg/dL Total Bilirubin 1.3 H (0.0-1.0) mg/dL Direct Bilirubin 0.3 (0.0-0.5) mg/dL AST 30 (5-37) U/L ALT 34 (0-40) U/L Alkaline Phosphatase 94 (39-117) U/L Troponin I High Sens < 2.7 (<3.5-35.0) ng/L Total Protein 7.7 (6.5-8.0) g/dL Albumin 4.6 (3.5-5.0) g/dL Influenza Type A (PCR) NEGATIVE (Negative) Influenza Type B (PCR) NEGATIVE (Negative) RSV RNA Qual (PCR) NEGATIVE (Negative) SARS-CoV-2 RNA (RT-PCR) NEGATIVE (Negative) S. pyogenes GrpA PATRICIO Negative (Negative) Discharge Plan Discharge Clinical Impression: Viral respiratory illness Patient Disposition: Home, Self-Care Additional Instructions: You seemed to have a viral respiratory illness. You had a fever with a temperature of 101.4 degrees. You have tested negative for influenza, RSV, and COVID. You have also tested negative for strep throat. Your chest x-ray shows no pneumonia. I think you have some kind of a viral respiratory infection that will likely get better on its own over the next few days. In the meantime use ibuprofen and acetaminophen as needed for discomfort and fever. I have sent prescriptions for these medications to your pharmacy. Make sure you stay well hydrated with lots of fluids. Chicken soup or chicken broth is good. Please plan on following up with your primary care doctor. Return to the emergency room if you feel significantly worse. Prescriptions: New acetaminophen 500 mg capsule 1,000 mg PO Q8H PRN (Reason: fever or pain) Qty: 14 0RF ibuprofen 400 mg tablet 400 mg PO Q6H PRN (Reason: pain) Qty: 14 0RF Referrals: [facility] [place] Group, [facility] Practice] Kimmy Alexandra PA [Primary Care Provider, Endocrinology] Interventions: ED Discharge Assessment Last Done: 05/13/25 20:39 Discharge Date/Time: 05/13/25 20:39 Print Language: Arabic
[2025-05-13 15:35] LABS: MANUAL DIFF FLAG NO
[2025-05-13 15:42] LABS: Hematocrit 48.9 % (42.0-52.0); Hemoglobin 17.3 g/dl (14.0-18.0); Imm Gran Abs Auto 0.03 X10*3/uL (0.00-0.03); Imm Gran Pct Auto 0.4 % (0.0-0.4); Lymphocytes Absolute Auto 1.1 X10*3/uL (1.2-4.9); Mean Corpuscular HGB Conc 35.4 g/dl (31.0-36.0); Mean Corpuscular Hemoglobin 31.5 pg (27.0-33.0); Mean Corpuscular Volume 88.9 fL (80.0-98.0); NRBC Abs Auto 0.000 X10*3/uL (0.0-0.012); NRBC Pct Auto 0.0 /100WBC (0.0-0.2); Platelet Count 169 X10*3/uL (160-400); Red Blood Count 5.50 X10*6/uL (4.60-5.80); White Blood Count 8.2 X10*3/uL (4.8-10.8)
[2025-05-13 15:46] LABS: INTERNATIONAL NORM RATIO 0.9 (0.9-1.1); Prothrombin Time 11.5 SEC (11.2-13.5)
[2025-05-13 15:47] LABS: IDNOW Serial# 08D9AD1C; Strep A Nucleic Acid Negative (Negative)
[2025-05-13 16:23] LABS: Alanine Aminotransferase 34 U/L (0-40); Albumin Level 4.6 g/dL (3.5-5.0); Alkaline Phosphatase 94 U/L (39-117); Anion Gap 13 (12-20); Aspartate Amino Transferase 30 U/L (5-37); Blood Urea Nitrogen 13 mg/dL (9-16); Calcium 9.3 mg/dL (8.4-10.2); Carbon Dioxide 23 mmol/L (22-29); Chloride 106 mmol/L (96-108); Creatinine Clr Calc Pharmacy 130.7; Estimated Glomerular Filt Rate > 60; Magnesium 1.8 mg/dL (1.6-2.6); Potassium 4.2 mmol/L (3.3-5.1); Sodium 138 mmol/L (135-145); Total Protein 7.7 g/dL (6.5-8.0); Troponin-I High Sensitivity < 2.7 ng/L (<3.5-35.0)
[2025-05-13 17:16] LABS: Resp Syncy Virus RNA Qual PCR NEGATIVE (Negative); SARS COV2 PCR INHOUSE NEGATIVE (Negative)
--- OUTSIDE RECORDS SUMMARY | 2025-05-13 20:11 | XMS_ITS | Clinical Summary ---
Author Organization [facility] Address [address] [place] [address] Phone Care Team Providers Care Child Welfare Consultant Name Role Phone Unavailable Primary Care Provider Unavailabl e Allergies No known active allergies Medications No known medications Active Problems Problem Noted Date Diagnosed Date Body mass index, pediatric, greater than or equal to 95th percentile for age 0510/02/2020 Assessment & Plan (11/26/2021 10:30 AM EDT): Has lost 11 lb in the last year, working out more, eating more heatlhy. Myopia of both eyes 01/23/2017 Assessment & Plan (11/26/2021 10:30 AM EDT): Needs to get back to eye doc for new lenses. Resolved Problems Problem Noted Date Diagnosed Date Resolved Date Other atopic dermatitis 01/29/201811/16 Acne vulgaris 01/23/2017 11/26/2021 Delay in development 01/23/2017 022 Assessment & Plan (11/26/2021 10:30 AM EDT): Has IEP in school, graduated. 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 Immunizations Immunization Administration Dates Next Due COVID-19 Pfizer, jacqueline-sucros e, 12+ years 07/18/2021 DTaP 5 03/31/2007, 5,05/30/2003,03/14,01/26/2003 H1N1 10/06/2009 HPV Vaccine 9 Valent 01/19/2016,01/31/2015 Hep A, ped/adol 01/31/2015,12/13/2013 Hep B, ped/adol 08/15/2003,2002,2002 Hib (HbOC) 04/11/2004 Hib (PRP-T) 05/30/2003,03/14/2003,01/26/2003 IPV 03/31/2007, 4,05/30/2003,03/14,01/26/2003 Influenza, injectable, quadr ivalent, preservative free 07/18/2021,10/02/2020,02/18/2019,01/29,01/23/2017,01/19/2016,01/31/2015 Influenza, injectable, trivalent 03/31/2007 MMR 12/08/2003 MMRV 03/31/2007 Meningococcal B Trumenba 10/02/2020 Meningococcal Conj (Menactra) MCV4P 02/18/2019,0 12/13/2013 Pneumococcal Conjugate 04/11/2004,2003,03/14/2003,01/26 Tdap 12/13/2013 Varicella 12/08/2003 Family History Medical History Relation Name Comments Asthma Brother Developmental delay Brother Eczema Brother Kidney disease Brother Asthma Father Food allergies Father Hypertension Father Colon cancer Maternal Grandfather Diabetes Mother Asthma Sister 1 Relation Name Status Comments Brother Alive Brother: Alive and well Father Father: Cancer, colon, Asthma, lazy eye Maternal Grandfather Materna l grandfather: Cancer, colon Mother Mother: Alive a nd well, pre-diabetes Other Family history of Strabismus, No family history of Hyperlipidemia, Family history of *Sudden /NC under 55, No family history of *Thrombophilia, Family history of Diabetes mellitus, Family history of Cancer, breast, Family history of *Dental caries, No family history of Deafness, No family history of *CVA/Stroke, Family history of Asthma, No family history of Seizure disorder, Family history of ADD/ADHD, Family history of Migraines, No family history of Developmental dislocation of hip, No family history of *Heart Disease, Family history of Obesity Sister 1 Alive Sister: Alive a nd well, Alive and well, Alive and well Sister 2 Alive Sister: Alive a nd well, Alive and well, Alive and well Sister 3 Alive Sister: Alive a nd well, Alive and well, Alive and well Social History Tobacco Use Types Packs/Day Years Used Date Smoking Tobacco: Never Comments:Never smoker Hunger/Food Answer Date Recorded In the last 12 months, did y ou or your family ever eat less than you felt you should because there wasn't enough money for food? No 11/26/2021 Stable Housing Answer Date Recorded Are you worried that in the next 2 months you may not have stable housing? No 11/26/2021 Transportation Concerns Answer Date Rec orded In the last 12 months, have you or your family ever had to go without healthcare because you didn't have a way to get there? No 11/26/2021 Hazards in Home Answer Date Recorded Think about the place you li ve. Do you have problems with any of the following? Pests (mice or roaches), mold, no/not working smoke detectors, water leaks, no window guards. No 2021 Financing Utilities Answer Date Recorde d In the last 12 months, has t he electric, gas, oil, or water company threatened to shut off your services in your home? No 11/26/2021 Safety at Home Answer Date Recorded Are you or your family worried about feeling saf e in your home? No 11/26/2021 Outside Support Answer Date Recorded Do you feel that you need mo re support from other people or programs to help you care for yourself or your family? No 11/26/2021 Understanding Health Concerns Answer Da te Recorded Do you need help understandi ng your or your child's healthcare needs (diagnosis, medications, plan, etc.)? No 11/26/2021 Financing Health Concerns Answer Date R ecorded In the last 12 months, was t here a time when your child needed to see a doctor or get medications or supplies but could not because of cost? No 11/26/2021 Missing School or Work Answer Date Helio rded Did you or your child miss s chool or work because of a health problem that could have been avoided? No 11/26/2021 Sex and Gender Information Value Date Recorded Sex Assigned at Male 03/27/2023 10:01 AM EST Legal Sex Male 2:07 PM EDT Gender Identity Male 03/27/2023 10:01 AM EST Sexual Orientation Straight 11/26/2021 10 :33 AM EDT Last Filed Vital Signs Vital Sign Reading Time Taken Comments Blood Pressure 131/77 11/26/2021 10:06 AM EDT Pulse 84 11/26/2021 10:06 AM EDT Temperature 36.4 C (97.6 F) 07/18/2021 1:29 PM EST Respiratory Rate 16 02/18/2019 8:17 AM EDT Oxygen Saturation 100% 01/12/2015 12:00 AM EDT Inhaled Oxygen Concentration - - Weight 95.4 kg (210 lb 6.4 oz) 11/26/2021 10:06 AM EDT Height 172.7 cm (5' 8 ) 11/26/2021 10:06 AM EDT Body Mass Index 31.99 11/26/2021 10:06 AM EDT Plan of Treatment Health Maintenance Due Date Last Done Comments Men B Vaccine (2 of 2 - Trum enba SCDM 2-dose series) 04/04/2021 10/02/2020 DTaP,Tdap,and Td Vaccines (7 - Td or Tdap) 12/14/2023 12/13/2013, 03/31/2007, 01/10/2005, Additional history exists Influenza Vaccines (#1) 2024 07/19/19, 10/02/2020, 02/18/2019, Additional history exists COVID-19 Vaccine (4 - 2024-2 6 season) 2025 07/18/2021, 2020, 10/20/2020 Hepatitis B Vaccines Completed 08/15/2003, 2002, 2002 HIB Vaccines Completed 04/11/2004, 05/19, 03/14/2003, Additional history exists Pneumococcal Vaccine Completed 04/11/2004, 05/30/2003, 03/14/2003, Additional history exists IPV Vaccines Completed 03/31/2007, 07/18, 05/30/2003, Additional history exists MMR Vaccines Completed 03/31/2007, 12/08/2003 Varicella Vaccines Completed 03/31/2007, 12/08/2003 Hepatitis A Vaccines Completed 01/31/2015, 12/14/19 14 HPV Vaccines Completed 01/19/2016, 01/31/2015 Meningococcal Vaccine Completed 02/18/2019, 014
--- OUTSIDE RECORDS SUMMARY | 2025-05-13 20:11 | XMS_ITS | Encounter Summary ---
Author Organization [facility] Address [address] [place] [address] Phone Care Team Providers Care Contact Center Representative Name Role Phone Provider, Silvestre MARTIN Primary Care Provider [phone] Encounter Details Date Type Department Care Team (Late st Contact Info) Description 01/02/2017 Conversion Encounter [facility] [address] [place] [address] Social History Tobacco Use Types Packs/Day Years Used Date Smoking Tobacco: Never Comments:Never smoker Sex and Gender Information Value Date Recorded Sex Assigned at Male 03/27/2023 10:01 AM EST Legal Sex Male 2:07 PM EDT Gender Identity Male 03/27/2023 10:01 AM EST Sexual Orientation Straight 11/26/2021 10 :33 AM EDT documented as of this encounter Plan of Treatment Not on file documented as of this encounter Visit Diagnoses Not on filedocumented in this encounter Care Teams Contact Center Representative Relationship Specialty Start Date End Date Provider, MD Silvestre [address] [place] [id number] PCP - General Pediatrics 11/07/23 11/24/23 documented as of this encounter
--- OUTSIDE RECORDS SUMMARY | 2025-05-13 20:11 | XMS_ITS | Clinical Summary ---
Author Organization [address] [facility] Address [address] [place] [address] Phone Care Team Providers Care Zone Supervisor Firearms Name Role Phone Kimmy Alexandra Primary Care Provider [phone] Allergies No known active allergies Medications silver sulfADIAZINE (SSD) 1 % cream Apply topically 1 (one) time each day. 50 g 4 05/17/20 25 Active Social History Tobacco Use Types Packs/Day Years Used Date Smoking Tobacco: Never Assessed Sex and Gender Information Value Date Recorded Sex Assigned at Not on file Legal Sex Male 11:02 AM EST Gender Identity Not on file Sexual Orientation Not on file Plan of Treatment Health Maintenance Due Date Last Done Comments Meningococcal B Vaccine (2 of 2 - Trumenba SCDM 2-dose series) 04/04/2021 10/02/2020 Cholesterol Screening (Lipid Panel) 03/29/2024 HIV Screening 03/29/2024 Hepatitis C Screening 03/29/2024 Social Influencers of Health Screening 03/29/2024 Depression Screening 05/19/2024 COVID-19 Vaccine ( season) 2025 07/18/2021, 2020, 10/20/2020 Influenza Vaccine (#1) 2025 , 07/18/2021, 10/02/2020, Additional history exists DTaP,Tdap,and Td Vaccines (8 - Td or Tdap) 03/25/2034 03/25/2024, 12/13/2013, 03/31/2007, Additional history exists RSV Immunization Adult Patients (1 - 1-dose 75+ series) 2077 Hepatitis B Vaccines Completed 08/15/2003, 2002, 2002 HIB Vaccines Completed 04/11/2004, 05/19, 03/14/2003, Additional history exists Pneumococcal Vaccine: Pediatrics (0 to 5 Years) and At-Risk Patients (6 to 49 Years) Completed 04/11/2004, 05/30/2003, 03/14/2003, Additional history exists IPV Vaccines Completed 03/31/2007, 07/18, 05/30/2003, Additional history exists MMR Vaccines Completed 03/31/2007, 12/08/2003 Varicella Vaccines Completed 03/31/2007, 12/08/2003 Hepatitis A Vaccines Completed 01/31/2015, 12/14/19 14 HPV Vaccines Completed 01/19/2016, 01/31/2015 Meningococcal ACWY Vaccine Completed 02/18/2019, RSV Immunization Patients Under 20 months Aged Out No longer eligible based on patient's age to complete this topic Insurance PLAN Care Teams Zone Supervisor Firearms Relationship Specialty Start Date End Date Kimmy Alexandra PA [address] [place] [id number] PCP - General Physician Turbinated Bone Grinder 03/29/24
--- OUTSIDE RECORDS SUMMARY | 2025-05-13 20:11 | XMS_ITS | Encounter Summary ---
Author Organization [facility] Address [address] [place] [address] Phone Care Team Providers Care Rotor Balancer Name Role Phone Provider, Silvestre MARTIN Primary Care Provider [phone] Encounter Details Date Type Department Care Team (Late st Contact Info) Description 01/25/2010 Documentation [facility] [address] [place], [place] [id number] Family Medicine, Physician [address] [place] [address] Social History Tobacco Use Types Packs/Day Years [...] on filedocumented in this encounter Care Teams Rotor Balancer Relationship Specialty Start Date End Date Provider, MD Silvestre [address] [place] [address] PCP - General Pediatrics 11/07/23 11/24/23 documented as of this encounter
--- OUTSIDE RECORDS SUMMARY | 2025-05-13 20:11 | XMS_ITS | Encounter Summary ---
Author Organization [facility] Address [address] [place] [address] Phone Care Team Providers Care Program Coordinator Executive Education Name Role Phone Provider, Silvestre MARTIN Primary Care Provider Encounter Details Date Type Department Care Team (Late st Contact Info) Description 04/27/2010 Documentation [facility] [address] [place], [place] [phone] Family Medicine, Physician [address] [place] [address] Social History Tobacco Use Types Packs/Day Years [...] on filedocumented in this encounter Care Teams Program Coordinator Executive Education Relationship Specialty Start Date End Date Provider, MD Sil[address] [place] [phone] PCP - General Pediatrics 11/07/23 11/24/23 documented as of this encounter
[2025-05-13 20:17] VITALS: BP 120/87; PULSE 103; RESP 17; TEMP 36.8; O2SAT 96
[2025-05-13 20:39] VITALS: BP 120/87; PULSE 103; RESP 17; TEMP 36.8; O2SAT 96
== END 2025-05-13 20:39 | disposition home or self-care (01) ==
PROVIDERS: Physician Assistant; Emergency Provider Emergency Medicine; PCP Physician Assistant Medical
DX: J06.9 Acute upper respiratory infection, unspecified (principal); R07.9 Chest pain, unspecified; R50.9 Fever, unspecified; R00.0 Tachycardia, unspecified
CPT/HCPCS: 36415; 71046; 80048; 80076; 83735; 84484; 85025; 85610; 87637; 87651; 93005; 99283; 99284

== ENCOUNTER → 2025-05-13 14:29 | Outpatient (BNV) | payer OTHER, SELFPAY | PROVIDERS: Emergency Provider Emergency Medicine; PCP Physician Assistant Medical; Visit Provider Internal Medicine Cardiovascular Disease | DX: R00.0 Tachycardia, unspecified (principal) | CPT/HCPCS: 93010 ==

== ENCOUNTER → 2025-05-13 14:43 | Outpatient (BNV) | payer OTHER, SELFPAY | PROVIDERS: PCP Physician Assistant Medical; Visit Provider Radiology Diagnostic Radiology | DX: R07.9 Chest pain, unspecified (principal) | CPT/HCPCS: 71046 ==